=== PATIENT | female | born 1960 | race Caucasian/White ===

== ENCOUNTER 2018-01-23 15:44 | Emergency (ER) | payer OTHER ==
[~2018-01-23] VITALS: Ht 160 cm; Wt 59.2 kg
[2018-01-23 15:57] VITALS: Ht 160 cm; Wt 59.2 kg
[2018-01-23 16:36] LABS: UA SPECIFIC GRAVITY >=1.030 (1.005-1.035); microscopic required? YES; urine erythrocyte TRACE (NEGATIVE)
[2018-01-23 16:41] LABS: BASOPHIL % 0.2 % (0-2); PLATELET COUNT 281 x10^3mcL (130-400); RED CELL DISTRIBUTION WIDTH 14.1 % (11.5-14.5)
[2018-01-23 16:57] LABS: CALCIUM 8.4 mg/dL (8.5-10.1); CARBON DIOXIDE 25.2 mmol/L (21-32); CHLORIDE SERUM 96 mmol/L (98-107); CREATININE SERUM 0.8 mg/dL (0.6-1.0); GFR1 > 60 mL/min; GLUCOSE SERUM 151 mg/dL (74-106); POTASSIUM SERUM 3.4 mmol/L (3.5-5.1); SODIUM SERUM 128 mmol/L (136-145)
[2018-01-23 17:02] LABS: ALBUMIN 3.4 g/dL (3.4-5.0); ALKALINE PHOSPHATASE 111 U/L (46-116); ALT/SGPT 34 U/L (14-59); AST/SGOT 37 U/L (15-37); BILIRUBIN TOTAL 0.65 mg/dL (0.20-1.00); TOTAL PROTEIN, SERUM 6.9 g/dL (6.4-8.2)
[2018-01-23 17:06] LABS: CK-MB < 0.5 ng/mL (0-3.6); CREATINE KINASE 55 U/L (26-192)
[2018-01-23 22:34] VITALS: BP 107/63
== END 2018-01-23 22:34 | disposition home or self-care (01) ==
LOC: ED 15:44
DX: K52.9 Noninfective gastroenteritis and colitis, unspecified (principal); E11.9 Type 2 diabetes mellitus without complications
CPT/HCPCS: 82962; 83880; 87046; 87046-59; J7030; Q0092

== ENCOUNTER 2018-01-25 09:54 | Emergency (ER) | payer OTHER ==
[~2018-01-25] VITALS: Ht 160 cm; Wt 57.8 kg
[2018-01-25 09:59] VITALS: Ht 160 cm; Wt 57.8 kg
[2018-01-25 11:28] VITALS: BP 109/72
== END 2018-01-25 11:28 | disposition home or self-care (01) ==
LOC: ED 09:54
DX: K52.9 Noninfective gastroenteritis and colitis, unspecified (principal); E11.9 Type 2 diabetes mellitus without complications
CPT/HCPCS: J1885

== ENCOUNTER 2018-10-22 09:11 | Inpatient (IN) | payer OTHER ==
[~2018-10-22] VITALS: Ht 154.9 cm; Wt 62.0 kg
[2018-10-22 09:16] VITALS: Ht 154.9 cm; Wt 62.0 kg
[2018-10-22] MEDS ORDERED: AMITRIPTYLINE H10 MG PO (09:38)
[2018-10-22] MEDS ORDERED: METFORMIN HCL500 MG PO (09:38)
[2018-10-22] MEDS ORDERED: CALCIUM (09:39)
[2018-10-22] MEDS ORDERED: SLOW RELEASE I142 MG PO (09:39)
[2018-10-22 10:09] LABS: BASOPHIL % 0.5 % (0-2); PLATELET COUNT 337 x10^3mcL (130-400)
[2018-10-22 10:10] LABS: RED CELL DISTRIBUTION WIDTH 16.3 % (11.5-14.5)
[2018-10-22 11:08] LABS: CARBON DIOXIDE 28.6 mmol/L (21-32); CHLORIDE SERUM 106 mmol/L (98-107); CREATININE SERUM 0.7 mg/dL (0.6-1.0); GFR1 > 60 mL/min; GLUCOSE SERUM 131 mg/dL (74-106); POTASSIUM SERUM 4.1 mmol/L (3.5-5.1); SODIUM SERUM 141 mmol/L (136-145)
[2018-10-22 11:13] LABS: ALKALINE PHOSPHATASE 90 U/L (46-116); ALT/SGPT 21 U/L (14-59); AST/SGOT 12 U/L (15-37); BILIRUBIN TOTAL 0.24 mg/dL (0.20-1.00); TOTAL PROTEIN, SERUM 7.3 g/dL (6.4-8.2)
[2018-10-22 11:33] VITALS: BP 138/58
[2018-10-22 21:33] VITALS: BP 114/66
[2018-10-23 06:02] VITALS: BP 109/53
[2018-10-23 07:31] LABS: ALBUMIN 3.6 g/dL (3.4-5.0); ALKALINE PHOSPHATASE 74 U/L (46-116); ALT/SGPT 18 U/L (14-59); AST/SGOT 14 U/L (15-37); BILIRUBIN TOTAL 0.3 mg/dL (0.20-1.00); CARBON DIOXIDE 26.7 mmol/L (21-32); CHLORIDE SERUM 107 mmol/L (98-107); CREATININE SERUM 0.6 mg/dL (0.6-1.0); GFR1 > 60 mL/min; GLUCOSE SERUM 115 mg/dL (74-106); POTASSIUM SERUM 3.9 mmol/L (3.5-5.1); SODIUM SERUM 143 mmol/L (136-145)
[2018-10-23 07:55] LABS: BASOPHIL % 0.6 % (0-2); PLATELET COUNT 346 x10^3mcL (130-400)
[2018-10-23 08:02] LABS: RED CELL DISTRIBUTION WIDTH 16.7 % (11.5-14.5)
[2018-10-23 10:04] VITALS: BP 90/50
[2018-10-23 10:36] VITALS: BP 90/50
== END 2018-10-23 11:47 | disposition home or self-care (01) | DRG 395 ==
LOC: ED 09:11 → DU 10:55
PROVIDERS: Internal Medicine; Specialist; ADMIT Internal Medicine Pulmonary Disease
PROC: 0DBN8ZZ Excision of Sigmoid Colon, Via Natural or Artificial Opening Endoscopic (ICD-10-PCS; principal; 2018-10-23 07:00)
DX: K60.1 Chronic anal fissure (principal); D50.0 Iron deficiency anemia secondary to blood loss (chronic); K63.5 Polyp of colon; Z68.24 Body mass index [BMI] 24.0-24.9, adult; E11.9 Type 2 diabetes mellitus without complications; Z90.49 Acquired absence of other specified parts of digestive tract; K57.90 Diverticulosis of intestine, part unspecified, without perforation or abscess without bleeding
CPT/HCPCS: 45378; 90658; 90732; C9113; J1200; J1610; J2250; J2310; J3010; J3490; J7030; J7120; Q0092